=== PATIENT | female | born 1980 | race Caucasian/White ===

== ENCOUNTER 2018-12-29 21:01 | Emergency (ER) | payer OTHER ==
[~2018-12-29] VITALS: Ht 160 cm; Wt 80.7 kg
[2018-12-29 21:17] VITALS: BP 125/95
--- NOTE | 2018-12-29 22:06 | PHYS DOC ---
Past Medical History Past Medical History: No Pertinent History (YOSI STERLING APRN) Past Surgical History: Appendectomy, , Hysterectomy (YOSI STERLING APRN) Alcohol Use: Occasionally Drug Use: None (YOSI STERLING APRN) Adult General Chief Complaint Chief Complaint: ANKLE PROBLEM HPI HPI Patient is a 38 year old male that presents with left ankle pain has been ongoing for 1.5 hours. The patient states she is walking on the stairs and her toe folded inward since she felt a big pop in her ankle and lower leg and states she's been having severe pain since that time. The patient rates her pain as 10 out of 10 in severity and states that it is sharp, shooting, and describes her foot is on fire. The patient also states that she has not had any interventions prior to arrival. (YOSI STERLING APRN) Review of Systems Review of Systems Constitutional: Denies fever or chills [] Eyes: Denies change in visual acuity, redness, or eye pain [] HENT: Denies nasal congestion or sore throat [] Respiratory: Denies cough or shortness of breath [] Cardiovascular: No additional information not addressed in HPI [] GI: Denies abdominal pain, nausea, vomiting, bloody stools or diarrhea [] : Denies dysuria or hematuria [] Musculoskeletal: Denies back pain but reports left lower leg, ankle and foot pain. Integument: Denies rash or skin lesions [] Neurologic: Denies headache, focal weakness or sensory changes [] Endocrine: Denies polyuria or polydipsia [] Complete systems were reviewed and found to be within normal limits, except as documented in this note. (YOSI STERLING APRN) Current Medications Current Medications Current Medications Medications (Trade) Dose Ordered Sig/Jairo Start Time Stop Time Status Last Admin Dose Admin Ketorolac Tromethamine (Toradol 30mg Vial) 30 mg 1X ONCE 12/29/18 22:30 12/29/18 22:31 DC 12/29/18 22:29 30 MG (YOSI ORNELAS DO) Allergies Allergies Allergies Coded Allergies Type Severity Reaction Last Updated Verified Sulfa (Sulfonamide Antibiotics) Allergy Intermediate 12/29/18 Yes sulfamethoxazole Allergy Intermediate 12/29/18 Yes trimethoprim Allergy Intermediate 12/29/18 Yes (YOSI ORNELAS DO) Physical Exam Physical Exam Constitutional: Well developed, well nourished, no acute distress, non-toxic appearance. [] HENT: Normocephalic, atraumatic, bilateral external ears normal, oropharynx moist, no oral exudates, nose normal. [] Eyes: PERRLA, EOMI, conjunctiva normal, no discharge. [] Neck: Normal range of motion, no tenderness, supple, no stridor. [] Cardiovascular:Heart rate regular rhythm, no murmur [] Lungs & Thorax: Bilateral breath sounds clear to auscultation [] Abdomen: Bowel sounds normal, soft, no tenderness, no masses, no pulsatile masses. [] Skin: Warm, dry, no erythema, no rash. [] Back: No tenderness, no CVA tenderness. [] Extremities: Tenderness to left lower extremity, lateral ankle, and foot diffusely, no cyanosis, no clubbing, ROM reduced, some edema to the lateral side of foot. Neurologic: Alert and oriented X 3, normal motor function, normal sensory function, no focal deficits noted. [] Psychologic: Affect normal, judgement normal, mood normal. [] (YOSI STERLING APRN) Current Patient Data Vital Signs Vital Signs Date Time Temp Pulse Resp B/P (MAP) Pulse Ox O2 Delivery O2 Flow Rate FiO2 12/29/18 21:17 98.8 92 18 125/95 (105) 98 Room Air 98.8 (YOSI ORNELAS DO) EKG EKG [] (YOSI STERLING APRN) Radiology/Procedures Radiology/Procedures Preliminary Interpreted by Dr. Ornelas of Tib/Fib, Ankle, and Foot on L side No obvious acute fracture or dislocation. (YOSI STERLING APRN) Course & Med Decision Making Course & Med Decision Making Pertinent Labs and Imaging studies reviewed. (See chart for details) Will get x-ray and give pain medication. No fracture will place in Skip wrap and d/c. (YOSI STERLING APRN) Dragon Disclaimer Dragon Disclaimer This electronic medical record was generated, in whole or in part, using a voice recognition dictation system. (YOSI STERLING APRN) Departure Departure Impression: Primary Impression: Foot pain, left Disposition: 01 HOME, SELF-CARE Condition: STABLE Patient Instructions: Elastic Bandage and RICE, Foot Contusion Additional Instructions: Thank you for visiting [facility]. We appreciate you trusting us with your care. If any additional problems come up don't hesitate to return to visit us. Please follow up with your primary care provider so they can plan additional care if needed and know about the problem that you had. If symptoms worsen come back to the Emergency Department. Any concerning symptoms that start such as chest pain, shortness of air, weakness or numbness on one side of the body, running high fevers or any other concerning symptoms return to the ER. Attending Signature Attending Signature I have reviewed the PA/WIRE BASKET MAKER's note and plan of care. I was available for consultation as needed during the patient's visit in the emergency department. I agree with the clinical impression, plan, and disposition. (YOSI ORNELAS DO) YOSI STERLING APRN Dec 29, 2018 22:06 YOSI ORNELAS DO Dec 31, 2018 05:18
[2018-12-29] MEDS ORDERED: KETOROLAC 30 MG/ML VIAL. IM ONE (22:30)
--- NOTE | 2018-12-29 23:34 | RAD ---
[facility]-view left foot and left ankle radiographs 12/29/2018 CLINICAL HISTORY: Fall with injury to the left foot/ankle. AP, lateral and oblique digital radiographs of the left foot and left ankle were obtained. The left ankle mortise is intact. No fracture or dislocation of the left ankle is seen. No fracture or dislocation of the left foot is noted. IMPRESSION: No fracture or dislocation of the left foot or ankle is seen. Electronically signed by: Norm Rodriguez MD (12/29/2018 11:32 PM) [facility]
--- NOTE | 2018-12-29 23:34 | RAD ---
[facility] left foot and left ankle radiographs 12/29/2018 CLINICAL HISTORY: Fall with injury to the left foot/ankle. AP, lateral and oblique digital radiographs of the left foot and left ankle were obtained. The left ankle mortise is intact. No fracture or dislocation of the left ankle is seen. No fracture or dislocation of the left foot is noted. IMPRESSION: No fracture or dislocation of the left foot or ankle is seen. Electronically signed by: Norm Rodriguez MD (12/29/2018 11:32 PM) [facility]
--- NOTE | 2018-12-29 23:37 | RAD ---
AP and lateral left tibia and fibula radiographs 12/29/2018 CLINICAL HISTORY: Fall with injury to the left leg. AP and lateral digital radiographs of the left tibia and fibula were obtained. Comparison is made to radiographs of the left ankle performed concurrently with this examination. No fracture or dislocation of the left tibia or fibula is seen. IMPRESSION: No fracture or dislocation of the left tibia or fibula is seen. Electronically signed by: Norm Rodriguez MD (12/29/2018 11:34 PM) [facility]
== END 2018-12-29 23:30 | disposition home or self-care (01) ==
LOC: ER 21:01
DX: M79.672 Pain in left foot (principal); M25.572 Pain in left ankle and joints of left foot; Z90.89 Acquired absence of other organs; Z98.890 Other specified postprocedural states; Z90.710 Acquired absence of both cervix and uterus; Z88.2 Allergy status to sulfonamides; Z88.1 Allergy status to other antibiotic agents
CPT/HCPCS: 73590; 73610; 73630; 96372; 99284; J1885